=== PATIENT | female | born 1970 | race Caucasian/White ===

== ENCOUNTER → 2018-11-01 | Outpatient (REF) ==
[~2018-11-01] MED LIST: DESYREL 50MG50 MG PO; METHERGINE0.2 MG/TAB PO; NORCO 325 MG-51 TAB PO; PAXIL 20MG20 MG PO; PRILOSEC 20MG20 MG PO; PROVERA 10MG10 MG PO; SERAX 15MG15 MG/CAP PO
[2018-11-01 09:25] LABS: THYROID STIMULATING HORMONE 1.87 uIU/mL (0.465-4.680)
== END ==
LOC: ZLAB.WCH 08:41
PROVIDERS: Physician Assistant
DX: Z01.89 Encounter for other specified special examinations (principal)

== ENCOUNTER 2020-07-26 19:26 | Emergency (ER) | payer OTHER | END 2020-07-26 19:47 | disposition left against medical advice (07) | LOC: COL.ER 19:26 | DX: Z53.21 Procedure and treatment not carried out due to patient leaving prior to being seen by health care provider (principal) ==